=== PATIENT | male | born 1965 | race Caucasian/White ===

== ENCOUNTER 2016-11-25 03:34 | Emergency (ER) | payer OTHER ==
[2016-11-25 03:48] VITALS: BP 134/70
--- NOTE | 2016-11-25 04:37 | ER Document Report ---
ED General - General Chief Complaint: Medical Clearance Stated Complaint: NEEDS LABS DRAWN Time Seen by Provider: 11/25/16 04:28 Notes: Patient is a 51-year-old male who presents with complaints of wanting a blood alcohol analysis. Patient says that he got a traffic ticket and therefore is compared to a get his blood drawn. There is no please with him in the room. He denies being an accident. He denies any trauma or injuries. He says his only want for coming to the ER is actually just to get the blood test performed. TRAVEL OUTSIDE OF THE [place] IN LAST 30 DAYS: No - Related Data Allergies/Adverse Reactions: No Known Allergies Allergy (Unverified 11/25/16 04:34) Past Medical History - Social History Smoking Status: Never Smoker Frequency of alcohol use: Occasional Drug Abuse: None Family History: Reviewed & Not Pertinent Patient has suicidal ideation: No Patient has homicidal ideation: No Renal/ Medical History: Denies: Hx Peritoneal Dialysis Review of Systems - Review of Systems Notes: My Normal Review Basic REVIEW OF SYSTEMS: CONSTITUTIONAL : Denies fever, chills, or sweats. Denies recent illness. MUSCULOSKELETAL: Denies neck or back pain or joint pain or swelling. SKIN: Denies rash or skin lesions. NEUROLOGICAL: Denies weakness or paralysis or loss of use of either side. Denies headache. Denies problems with gait or speech. Denies sensory or motor loss. ALL OTHER SYSTEMS REVIEWED AND NEGATIVE. Physical Exam - Vital signs Vitals: Temp Pulse Resp BP Pulse Ox 97.8 F 73 16 134/70 H 96 11/25/16 03:45 11/25/16 03:45 11/25/16 03:45 11/25/16 03:45 11/25/16 03:45 - Notes Notes: General Appearance: Well nourished, alert, cooperative, no acute distress, no obvious discomfort. Appearing. Vitals: reviewed, See vital signs table. Head: no swelling or tenderness to the head Eyes: PERRL, EOMI, Conjuctiva clear Lungs: No wheezing, No rales, No rhonci, No accessory muscle use, good air exchange bilaterally. Heart: Normal rate, Regular rythm, No murmur, no rub Skin: warm, dry, appropriate color, no rash Neuro: speech clear, oriented x 3, normal affect, responds appropriately to questions. cranial nerves II through XII are grossly intact. Patient is able stand and walk without difficulty. He moves all extremities on his own. Course - Re-evaluation Re-evalutation: 11/25/16 05:14 Patient's alcohol level was 110 mg/dL. I informed patient of his level. I asked him if you need anything else. He denies needing any other services at this time. Patient will be discharged home. Dictation of this chart was performed using voice recognition software; therefore, there may be some unintended grammatical errors. - Vital Signs Vital signs: Temp Pulse Resp BP Pulse Ox 97.8 F 73 16 134/70 H 96 11/25/16 03:45 11/25/16 03:45 11/25/16 03:45 11/25/16 03:45 11/25/16 03:45 Discharge - Discharge Clinical Impression: Patient requested test Condition: Good Disposition: HOME, SELF-CARE Additional Instructions: Your alcohol level was 110 mg/dL. Return to the ER if you have any further concerns.
== END 2016-11-25 05:19 | disposition home or self-care (01) ==
LOC: ER 03:34
DX: Z02.83 Encounter for blood-alcohol and blood-drug test (principal); Y90.5 Blood alcohol level of 100-119 mg/100 ml
CPT/HCPCS: 36415; 80307; 99282